=== PATIENT | male | born 1925 | race Caucasian/White ===

== ENCOUNTER 2017-06-24 20:39 | Inpatient (IN) | payer OTHER ==
[~2017-06-24] VITALS: Ht 180.3 cm; Wt 107.1 kg
[~2017-06-24 20:39] MED LIST: AMLODIPINE BESYL5 MG PO; ASPIR-TRIN325 M1 PO; ATORVASTATIN CA80 MG PO; CELEBREX200 MG PO; Dyazide, Maxzide 37. PO; Ecotrin PO; FEOSOL325 MG PO; LOTENSIN10 MG PO; Levaquin PO; NORVASC5 MG PO; SENOKOT S,PE1 TABLET PO; Vicodin,Lortab 5/500 PO; Zocor PO
[2017-06-24 21:45] LABS: HEMATOCRIT 42.8 % (38.0-50.0); MCH 29.1 PG (29.0-34.0); MCHC 33.6 G/DL (30.0-36.0); MCV 86.6 FL (86-99); MEAN PLAT.VOLUME 8.2 uM^3 (9.0-12.4); PLATELET COUNT 225 K/uL (156-360); RBC DIS.WIDTH-SD 40.8 % (39-53); RED BLOOD COUNT 4.94 M/uL (4.00-5.50); WHITE BLOOD COUNT 22.3 K/uL (4.1-10.2)
[2017-06-24 21:53] LABS: CHLORIDE 102 mEq/L (99-109); POTASSIUM 4.1 mEq/L (3.7-5.4); SODIUM 136 mEq/L (136-147)
[2017-06-24 21:56] LABS: GLUCOSE 172 mg/dL (70-99)
[2017-06-24 21:57] LABS: ANION GAP 11 MEQ/L (2-14)
[2017-06-24 21:58] LABS: TOTAL BILIRUBIN 1.2 mg/dL (0.0-1.0)
[2017-06-24 21:59] LABS: ALKALINE PHOSPHATASE 114 IU/L (3-129); GFR ESTIMATE (CALCULATED) > 59 mL/min/ (58.99-99999)
[2017-06-24 22:01] LABS: UREA NITROGEN (BUN) 15 mg/dL (9-23)
[2017-06-24 22:05] LABS: TROP-I INTERPRETATION NEGATIVE; TROPONIN-I 0.01 ng/mL (0.0-0.30)
[2017-06-24] MEDS ORDERED: BAYER CHEWABLE81 MG PO (23:32)
[2017-06-24] MEDS ORDERED: FLONASE16 G1 BOTH NARES (23:33)
[2017-06-24] MEDS ORDERED: SYMBICORT60 INHALAT IH (23:33)
[2017-06-24] MEDS ORDERED: VITAMIN B12 100MCG PO (23:35)
[2017-06-25 04:26] VITALS: BP 116/67; BP 162/74
[2017-06-25 05:58] LABS: ADD MIUA? NO; BILIRUBIN NEGATIVE; BLOOD NEGATIVE; COLOR YELLOW ((YELLOW)); GLUCOSE (STRIP) NEGATIVE; KETONES NEGATIVE; LEUKOCYTES NEGATIVE; NITRITE NEGATIVE; PROTEIN (STRIP) NEGATIVE; SPECIFIC GRAVITY 1.015 (1.000-1.030); UCUL ADDED? NO
[2017-06-25 06:17] LABS: EOSINOPHIL (%) 0 % (0-5); HEMATOCRIT 41.8 % (38.0-50.0); IMMATURE GRANULOCYTE COUNT 0.2 K/uL; INSTRUMENT ABS NEUTROPHIL CT 22.5 K/uL; LYMPHOCYTE COUNT 0.4 K/uL (1.0-2.8); MCH 28.8 PG (29.0-34.0); MCHC 32.5 G/DL (30.0-36.0); MCV 88.6 FL (86-99); MEAN PLAT.VOLUME 8.5 uM^3 (9.0-12.4); MONOCYTE (%) 3.3 % (3-12); MONOCYTE COUNT 0.8 K/uL (0-0.8); NEUTROPHIL (%) 93.9 % (45-76); NEUTROPHIL COUNT 22.5 K/uL (1.8-6.4); PLATELET COUNT 206 K/uL (156-360); RBC DIS.WIDTH-CV 13.2 % (11.8-14.6); RBC DIS.WIDTH-SD 42.6 % (39-53); RED BLOOD COUNT 4.72 M/uL (4.00-5.50)
[2017-06-25 06:19] LABS: POINT-OF-CARE METER ID UU14314084
[2017-06-25 06:59] LABS: ANION GAP 11 MEQ/L (2-14); CHLORIDE 106 MEQ/L (99-109); GFR ESTIMATE (CALCULATED) > 59 mL/min/ (58.99-99999); GLUCOSE 164 mg/dL (70-99); POTASSIUM 4.2 MEQ/L (3.7-5.4); SAMPLE HEMOLYSIS CHECK 0; SAMPLE ICTERIC CHECK 0; SAMPLE LIPEMIA CHECK 0; SODIUM 138 MEQ/L (136-147); UREA NITROGEN (BUN) 15 mg/dL (9-23)
[2017-06-25 07:58] VITALS: BP 122/58
[2017-06-25 11:15] LABS: INTER. NORMALIZED RATIO 1.3; PROTHROMBIN TIME 15.2 SEC (10.2-12.9)
[2017-06-25 11:18] LABS: PTT 31.1 SEC (25-37)
[2017-06-25 11:28] LABS: POINT-OF-CARE METER ID UU14208750
[2017-06-25 11:52] VITALS: BP 104/61
[2017-06-25 13:31] LABS: TYPE OF FLUID PLEURAL
[2017-06-25 14:04] LABS: BODY FLUID LDH 107 IU/L; BODY FLUID PROTEIN < 3.0 G/DL
[2017-06-25 14:17] LABS: BODY FLUID EOSINOPHILS 0 % (0-25); BODY FLUID RBC'S 5000 /MM^3 (0-100); BODY FLUID WBC'S 1549 /MM^3 (0-500); MONONUCLEAR WBC'S 10 %; POLYNUCLEAR WBC'S 90 % (0-25)
[2017-06-25 16:53] LABS: POINT-OF-CARE METER ID UU14208750
[2017-06-25 17:06] LABS: POINT-OF-CARE METER ID UU14208750
[2017-06-25 17:17] VITALS: BP 110/68
[2017-06-25 19:31] VITALS: BP 116/67
[2017-06-25 21:22] LABS: POINT-OF-CARE METER ID UU14208750
[2017-06-25 23:50] VITALS: BP 110/66
[2017-06-26 03:18] VITALS: BP 115/59
[2017-06-26 06:31] LABS: POINT-OF-CARE METER ID UU14208750
[2017-06-26 06:44] LABS: HEMATOCRIT 39.2 % (38.0-50.0); MCH 29.3 PG (29.0-34.0); MCHC 32.7 G/DL (30.0-36.0); MCV 89.7 FL (86-99); MEAN PLAT.VOLUME 8.6 uM^3 (9.0-12.4); PLATELET COUNT 213 K/uL (156-360); RBC DIS.WIDTH-CV 12.9 % (11.8-14.6); RBC DIS.WIDTH-SD 42.6 % (39-53); RED BLOOD COUNT 4.37 M/uL (4.00-5.50); WHITE BLOOD COUNT 21.6 K/uL (4.1-10.2)
[2017-06-26 07:06] LABS: ANION GAP 10 MEQ/L (2-14); CHLORIDE 105 MEQ/L (99-109); GFR ESTIMATE (CALCULATED) > 59 mL/min/ (58.99-99999); GLUCOSE 197 mg/dL (70-99); POTASSIUM 4.4 MEQ/L (3.7-5.4); SAMPLE HEMOLYSIS CHECK 0; SAMPLE ICTERIC CHECK 0; SAMPLE LIPEMIA CHECK 0; SODIUM 139 MEQ/L (136-147); UREA NITROGEN (BUN) 21 mg/dL (9-23)
[2017-06-26 07:42] VITALS: BP 115/60
[2017-06-26 11:08] VITALS: BP 137/70
[2017-06-26 12:10] LABS: POINT-OF-CARE METER ID UU14208750
[2017-06-26 15:30] VITALS: BP 108/68
[2017-06-26 16:40] LABS: POINT-OF-CARE METER ID UU14162508
[2017-06-26 19:30] VITALS: BP 137/68
[2017-06-26 21:35] LABS: POINT-OF-CARE METER ID UU14208750
[2017-06-26 23:55] VITALS: BP 130/54
[2017-06-27 03:35] VITALS: BP 94/51
[2017-06-27 06:28] LABS: POINT-OF-CARE METER ID UU14208750
[2017-06-27 08:12] VITALS: BP 130/76
[2017-06-27 10:56] VITALS: BP 127/60
[2017-06-27 12:34] LABS: POINT-OF-CARE METER ID UU14162508
== END 2017-06-27 16:05 | disposition short-term general hospital (02) | DRG 871 ==
LOC: EME 20:39 → EDOF 06-25 01:32 → 2EAST 06-25 01:32 → ENRESERV 06-25 01:35 → 2EAST 06-25 03:15
PROVIDERS: Emergency Medicine; Hospitalist; Radiology Diagnostic Radiology
DX: A41.9 Sepsis, unspecified organism (principal); J96.21 Acute and chronic respiratory failure with hypoxia; J18.1 Lobar pneumonia, unspecified organism; J44.0 Chronic obstructive pulmonary disease with (acute) lower respiratory infection; J44.1 Chronic obstructive pulmonary disease with (acute) exacerbation; J91.8 Pleural effusion in other conditions classified elsewhere; R73.9 Hyperglycemia, unspecified; I10 Essential (primary) hypertension; E78.2 Mixed hyperlipidemia; Z96.653 Presence of artificial knee joint, bilateral; E66.01 Morbid (severe) obesity due to excess calories; Z68.32 Body mass index [BMI] 32.0-32.9, adult; Z99.81 Dependence on supplemental oxygen; Z85.118 Personal history of other malignant neoplasm of bronchus and lung; Z85.828 Personal history of other malignant neoplasm of skin; Z92.21 Personal history of antineoplastic chemotherapy; Z92.3 Personal history of irradiation; Z87.891 Personal history of nicotine dependence
CPT/HCPCS: 71020; 71275; 76942; 80048; 80053; 81003; 82945; 82948; 83605; 83615 91; 84157; 84484; 85025; 85027; 85610; 85730; 87040; 87070; 87075; 87205; 87449; 88108; 88305; 89051; 93005; 94010; 94640; 94640 76; 94667; 94668; 94799; 97530 GO; 99202; 99281; 99285; J0295; J0456; J0696; J1644; J2930; J7030; J7050